=== PATIENT | male | born 2000 | race African-American/Black ===

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

== ENCOUNTER 2022-03-26 02:17 | Emergency (ER) | payer BC, OTHER ==
[2022-03-26 02:43] VITALS: BP 141/90; PULSE 69; RESP 18; TEMP 97.8; BMI 34.9
[2022-03-26] MEDS ORDERED: AZITHROMYCIN 500 MG TABLET PO ONE (03:57)
[2022-03-26] MEDS ORDERED: ACETAMINOPHEN 500 MG TABLET (FP) PO ONE (04:00)
[2022-03-26] MEDS ORDERED: AZITHROMYCIN 500 MG TABLET ONE (04:04)
[2022-03-26] MEDS ORDERED: ACETAMINOPHEN 325 MG TABLET (FP) ONE (04:04)
== END 2022-03-26 04:10 | disposition home or self-care (01) ==
LOC: JER 02:17
DX: J18.8 Other pneumonia, unspecified organism (principal); R07.0 Pain in throat
CPT/HCPCS: 0241U-QW; 71046-TC-FY; 87651; 99284-25